=== PATIENT | male | born 1955 | race Caucasian/White ===

== ENCOUNTER → 2019-05-10 10:35 | Outpatient (BNVA) | payer BC, SELFPAY | PROVIDERS: Visit Provider Family Medicine | DX: Z23 Encounter for immunization (principal); J30.2 Other seasonal allergic rhinitis; E78.2 Mixed hyperlipidemia; Z12.5 Encounter for screening for malignant neoplasm of prostate | CPT/HCPCS: 80053; 80061; 85025; G0103 ==

== ENCOUNTER → 2019-12-29 16:40 | Outpatient (BNVA) | payer BC, SELFPAY | PROVIDERS: Visit Provider Family Medicine | DX: E78.2 Mixed hyperlipidemia (principal) | CPT/HCPCS: 80053; 80061; 85025 ==

== ENCOUNTER → 2021-08-07 10:18 | Outpatient (BNVA) | payer MEDICARE, BC, SELFPAY | PROVIDERS: Visit Provider Family Medicine | DX: E78.5 Hyperlipidemia, unspecified (principal); J30.2 Other seasonal allergic rhinitis; M19.90 Unspecified osteoarthritis, unspecified site; Z12.5 Encounter for screening for malignant neoplasm of prostate | CPT/HCPCS: 80053; 80061; 84443; 85025; G0103 ==

== ENCOUNTER → 2023-04-21 12:05 | Outpatient (BNVA) | payer MEDICARE, BC, SELFPAY | PROVIDERS: Visit Provider Family Medicine | DX: E78.5 Hyperlipidemia, unspecified (principal); Z12.5 Encounter for screening for malignant neoplasm of prostate; M54.9 Dorsalgia, unspecified; E78.2 Mixed hyperlipidemia | CPT/HCPCS: 80053; 80061; 84443; 85025 ==

== ENCOUNTER → 2024-02-10 12:45 | Outpatient (BNVA) | payer MEDICARE, BC, SELFPAY | PROVIDERS: PCP Nurse Practitioner Family; Visit Provider Nurse Practitioner Family | DX: E78.2 Mixed hyperlipidemia (principal) | CPT/HCPCS: 80053; 80061; 84443; 85025 ==

== ENCOUNTER → 2024-08-09 15:24 | Outpatient (BNVA) | payer MEDICARE, BC, SELFPAY | PROVIDERS: PCP Nurse Practitioner Family; Visit Provider Nurse Practitioner Family | DX: E78.2 Mixed hyperlipidemia (principal) | CPT/HCPCS: 80053; 80061; 85025 ==

== ENCOUNTER 2024-11-02 09:31 | Emergency (ER) | payer MEDICARE, BC, SELFPAY ==
--- NOTE | 2024-11-02 09:35 | ECG_ITS ---
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 Measurements Intervals [place] Rate: 58 P: 28 DC: 173 QRS: 55 QRSD: 99 T: 41 QT: 406 QTc: 400 Interpretive Statements SINUS BRADYCARDIA Compared to ECG 08/11/2016 09:06:17 Sinus rhythm no longer present Intraventricular conduction delay no longer present Electronically Signed On 11-02-2024 18:11:00 CDT by Salas Mae M.D. [email or web address]
--- NOTE | 2024-11-02 09:35 | XR_ITS ---
WS: [id number] Exam: XR chest 1V portable [id number] Date/Time of Exam: 11/02/2024 9:49 AM Reason For Exam: chest pain No priors. Lungs are clear and fully inflated. Normal cardiomediastinal silhouette. No pleural effusion. Unremarkable bony structures. XR/XR chest 1V portable [id number] IMPRESSION: 1. Negative chest.
--- NOTE | 2024-11-02 09:36 | ED_ITS ---
HPI - Chest Pain 2 General: Chief Complaint: Chest Pain Stated Complaint: cp, L hand numbness, sent from [facility] Time Seen by Provider: 11/02/24 09:34 History of Present Illness: 69-year-old female presents emergency ro om complaining of epigastric/chest pain for the last 3 days she has not noticed anything that exacerbates or relieves it. She has had some indigestion-like symptoms also had some loose stools that is resolved denies any hematemesis or coffee-ground emesis. No known history of cardiac disease or arrhythmias no previous abdominal surgeries. Associated symptoms: Deny abdominal pain, dyspnea or fever(s) Related Data Previous Rx's ?Medication ?Instructions ?Recorded aspirin 81 mg tablet,delayed 81 mg PO DAILY #90 tabs 0 05/10/19 release (Adult Low Dose Aspirin) cetirizine 10 mg tablet (Zyrtec) 10 mg PO DAILY #90 ta bs 05/10/19 ibuprofen 800 mg tablet 800 mg PO Q8H #30 tabs 04/21 atorvastatin 20 mg tablet See Rx Instructions .Route 0 08/09/24 .COMPLEX #90 tabs pantoprazole 40 mg tablet,delayed 40 mg PO DAILY 4 wee ks #28 tabs 11/02/24 release Allergies Allergy/AdvReac Type Severity Reaction Status Date / Time No Known Allergies Allergy Verified 11/02/24 08:31 Review of Systems 2 Const: Denies: fever(s) or chills Card: Reports: chest pain Resp: Denies: dyspnea GI: Denies: abdominal pain : Denies: dysuria, urinary frequency or urinary urgency Musc: Denies: neck pain or back pain Skin/Breast: Denies: rash PFSH ED 2 PFSH: Family History Other Diabetes Stroke Denies family history of Cancer Social History Smoking and tobacco/nicotine status: never used tobacco/nicotine Second hand smoke exposure: No Alcohol intake: never Substance/Drug Use: never Adopted: No Caregiver/support person: No Lives independently: Yes Household members: none Housing: House Marital status: Single Number of children: 0 service: No Current occupational status: retired Do you think of yourself as: Straight/Heterosexual Current gender identity: Male Physical Exam 2 Const: GENERAL APPEARANCE: cooperative ORIENTATION/CONSCIOUSNESS: Yes awake, Yes oriented to person, Yes oriented to place and Yes oriented to time HENMT: COMMON NORMALS: normocephalic, atraumatic and hearing grossly normal bilaterally HEAD & SCALP: normocephalic and atraumatic Resp: COMMON NORMALS: normal respiratory effort, No retractions, No use of accessory muscles and clear to auscultation bilaterally AUSCULTATION: clear to auscultation bilaterally Cardio: COMMON NORMALS: regular rate, regular rhythm and No murmurs present (Cardio) RATE: regular rate RHYTHM: regular rhythm GI: COMMON NORMALS: Soft to palpation and No hepatosplenomegaly present A USCULTATION: Yes normoactive bowel sounds PALPATION: Yes Soft to palpation, No Tenderness to palpation present (GI), No Guarding due to palpation present (GI) and Yes No hepatosplenomegaly present Extremity: COMMON NORMALS: normal to inspection, capillary refill normal, no clubbing, cyanosis or edema, no calf tenderness and no pedal edema Neuro: SENSORIUM/ORIENTATION: Yes oriented to person, Yes oriented to place and Yes oriented to time Skin: COMMON NORMALS: no rashes or lesions noted GENERAL SKIN EXAM: no rashes or lesions noted Course 2 Vital Signs: Vital signs: Vital Signs Temperature 98.1 F 11/02/24 09:45 Pulse Rate 62 11/02/24 11:12 Respiratory Rate 16 11/02/24 11:12 Blood Pressure 117/84 11/02/24 11:12 Pulse Oximetry 93 11/02/24 11:12 Oxygen Delivery Me thod Room Air 11/02/24 11:12 MDM - Chest Pain Medical Decision Making Delta troponin is negative EKGs show no signs of acute coronary syndrome. Sinus bradycardia without ST changes. Will discharge patient home started on Protonix. Set her up for an outpatient Lexiscan sestamibi stress test and follow-up with her primary care doctor if symptoms persist she may need further evaluation including possible evaluation of gallbladder if her cardiac stress test is negative Medical Records I reviewed the patient's medical records. Lab Data I reviewed the patient's lab results. 11/02/24 09:53 11/02/24 09:53 Radiology Impressions Chest X-Ray 11/02/24 09:35 IMPRESSION: 1. Negative chest. Laboratory Results WBC 5.73 10^3/uL (3.29-11.43) 11/02/24 09:53 RBC 5.03 10^6/uL (3.85-5.65) 11/02/24 09:53 Hgb 15.60 g/dL (11.27-16.99) 11/02/24 09:53 Hct 46.2 % (37-53) 11/02/24 09:53 MCV 91.8 fl (82-101) 11/02/24 09:53 MCH 31.0 pg (27-33) 11/02/24 09:53 MCHC 33.8 g/dL (30-55) 11/02/24 09:53 RDW 12.2 % (12.1-15.1) 11/02/24 09:53 Plt Count 223 10^3/cmm (157-399) 11/02/24 09:53 MPV 9.8 fL (7.4-10.4) 11/02/24 09:53 Neut % (Auto) 47.4 % 11/02/24 09:53 Lymph % (Auto) 33.7 % 11/02/24 09:53 Hardin % (Auto) 14.0 % 11/02/24 09:53 Eos % (Auto) 3.5 % 11/02/24 09:53 Baso % (Auto) 0.7 % 11/02/24 09:53 Neut # (Auto) 2.72 10^3/uL (1.8-7.7) 11/02/24 09:53 Lymph # (Auto) 1.9 10^3/uL (0.8-4.8) 11/02/24 09:53 Hardin # (Auto) 0.8 10^3/uL (0.2-0.9) 11/02/24 09:53 Eos # (Auto) 0.2 10^3/uL (0.0-0.8) 11/02/24 09:53 Baso # (Auto) 0.0 10^3/uL (0.0-0.1) 11/02/24 09:53 Nucleated RBC % (auto) 0 % 11/02/24 09:53 Nucleated RBCs # 0.0 /100WBC 11/02/24 09:53 Sodium 138 mmol/L (136-145) 11/02/24 09:53 Potassium 4.5 mmol/L (3.5-5.1) 11/02/24 09:53 Chloride 104 mmol/L (98-107) 11/02/24 09:53 Carbon Dioxide 25 mmol/L (22-29) 11/02/24 09:53 Anion Gap 13.5 (5-19) 11/02/24 09:53 BUN 16 mg/dL (8-23) 11/02/24 09:53 Creatinine 0.8 mg/dL (0.7-1.2) 11/02/24 09:53 GFR Calculation 95.8 mL/min (90-130) 11/02/24 09:53 Glucose 114 mg/dL (65-115) 11/02/24 09:53 Calculated Osmolality 288 mOsm/kg (285-295) 11/02/24 09:53 Calcium 9.1 mg/dL (8.5-10.5) 11/02/24 09:53 Total Bilirubin 0.4 mg/dL (0.15-1.2) 11/02/24 09:53 AST 28 U/L (0-40) 11/02/24 09:53 ALT 38 U/L (0-41) 11/02/24 09:53 Alkaline Phosphatase 67 U/L (40-130) 11/02/24 09:53 Troponin T Baseline 12 ng/L (0-15) 11/02/24 09:53 Troponin T 120 Minute 11.72 ng/L (0-15) 11/02/24 11:47 Delta Troponin T -0.28 ABS# (0-10) L 11/02/24 11:47 Total Protein 7.1 g/dL (6.6-8.7) 11/02/24 09:53 Albumin 4.3 g/dL (3.5-5.2) 11/02/24 09:53 Globulin 2.8 g/dL (1.3-4.6) 11/02/24 09:53 All radiology interpretation(s) finalized by discharge EKG Data EKG 1: Interpretation: EKG 11/02/2024 9:40 AM sinus bradycardia. Rate of 58 PA interval 173 QTc 400. No acute ST elevations noted. T wave inversion in V1 and 2 compared to EKG 08/11/2016 now has sinus bradycardia but otherwise no significant changes EKG 2: Interpretation: EKG 09/02/2024 1157 sinus bradycardia rate of 58 PA interval 178 QTc 438 compared to EKG done earlier same day no changes. Discharge Plan Discharge Patient Disposition: Home Clinical Impression: Atypical chest pain Condition: Stable Prescriptions: New pantoprazole 40 mg tablet,delayed release (DR/EC) 40 mg PO DAILY 28 Days Qty: 28 0RF No Action aspirin [Adult Low Dose Aspirin] 81 mg tablet,delayed release (DR/EC) 81 mg PO DAILY Qty: 90 0RF cetirizine [Zyrtec] 10 mg tablet 10 mg PO DAILY Qty: 90 0RF ibuprofen 800 mg tablet 800 mg PO Q8H Qty: 30 0RF atorvastatin 20 mg tablet See Rx Instructions .ROUTE .COMPLEX Qty: 90 1RF Dose Instruction: TAKE ONE TABLET BY MOUTH DAILY Rx Instructions: TAKE ONE TABLET BY MOUTH DAILY Discharge Orders: Discharge ED (Routine); Ordered 11/02/24 Ordered By: Callum Iglesias Referrals: Brenda Mace FNP-C [Primary Care Provider, Family Practice] Discharge Diet: As Directed Discharge Activity: Increase activity as tolerated Patient Instructions: Diet for Stomach Ulcers and Gastritis (ED), Opioid Safety, Pain Management, Patient Portal & Mohini Instructions Activity Restrictions/Additional Instructions: Thank you for choosing [facility] for your healthcare needs today. It is very important that you follow up as instructed or that you return to the Emergency Department should you have concerns or if your condition changes or worsens in any way. You were seen in the emergency room with complaints of chest pain and epigastric discomfort. Your cardiac enzymes were negative your EKGs were normal. Will discharge you home on Protonix 40 mg daily. Will set you up for an outpatient Lexiscan sestamibi stress test and follow-up with your primary care doctor. Print Language: Botswanan Coding Level of Care Code ED Carpet Layer for Kamini Brandt
[2024-11-02 09:45] VITALS: BP 122/82; PULSE 68; RESP 18; TEMP 36.7; O2SAT 96; BMI 34.7
[2024-11-02 10:04] LABS: Hematocrit 46.2 % (37-53); Hemoglobin 15.60 g/dL (11.27-16.99); Mean Corpuscular HGB Conc 33.8 g/dL (30-55); Mean Corpuscular Hemoglobin 31.0 pg (27-33); Mean Corpuscular Volume 91.8 fl (82-101); Nucleated Red Blood Cells % 0 %; Platelet Count 223 10^3/cmm (157-399); Red Blood Count 5.03 10^6/uL (3.85-5.65); White Blood Count 5.73 10^3/uL (3.29-11.43)
[2024-11-02 10:23] LABS: Troponin(5th) Baseline 12 ng/L (0-15)
[2024-11-02 10:31] LABS: Alanine Aminotransferase 38 U/L (0-41); Albumin Level 4.3 g/dL (3.5-5.2); Alkaline Phosphatase 67 U/L (40-130); Anion Gap 13.5 (5-19); Aspartate Amino Transferase 28 U/L (0-40); Blood Urea Nitrogen 16 mg/dL (8-23); Calcium 9.1 mg/dL (8.5-10.5); Carbon Dioxide 25 mmol/L (22-29); Chloride 104 mmol/L (98-107); Creatinine Clr Calc Pharmacy 114.6453; Globulin 2.8 g/dL (1.3-4.6); Glucose 114 mg/dL (65-115); Osmolality Calculated 288 mOsm/kg (285-295); Potassium 4.5 mmol/L (3.5-5.1); Sodium 138 mmol/L (136-145); Total Protein 7.1 g/dL (6.6-8.7)
[2024-11-02 11:12] VITALS: BP 117/84; PULSE 62; RESP 16; O2SAT 93
--- NOTE | 2024-11-02 11:57 | ECG_ITS ---
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 Measurements Intervals [place] Rate: 58 P: 27 [place]: 178 QRS: 6 QRSD: 103 T: 14 QT: 436 QTc: 430 Interpretive Statements SINUS BRADYCARDIA Compared to ECG 11/02/2024 09:40:42 No significant changes Electronically Signed On 11-02-2024 18:17:01 CDT by Salas Mae M.D. [id number]
[2024-11-02 12:13] LABS: Troponin 5 2HR 11.72 ng/L (0-15)
[2024-11-02 12:16] LABS: Troponin 5 2HR Delta -0.28 ABS# (0-10)
[2024-11-02 12:41] VITALS: BP 113/77; PULSE 63; O2SAT 98
== END 2024-11-02 12:47 | disposition home or self-care (01) ==
PROVIDERS: Emergency Provider Family Medicine; PCP Nurse Practitioner Family
DX: R07.89 Other chest pain (principal); Z79.82 Long term (current) use of aspirin
CPT/HCPCS: 36415; 71045; 80053; 84484; 85025; 93005; 99285

== ENCOUNTER 2024-11-11 06:27 | Outpatient (CLI) | payer MEDICARE, BC, SELFPAY ==
[2024-11-11 06:42] VITALS: BMI 34.7
--- NOTE | 2024-11-11 06:53 | NMCV_ITS ---
NM [place] perf SPECT r/s* [id number] Cam Titus Age: 69 Gender: M : 1955 Exam Date: 11/11/2024 07:31 Ordering Phys: Callum Iglesias DO Technologist: COLEMAN Crain Exam Location: [facility] Indications: cp STRESS TEST Please see separate stress test report in [facility] for full findings IMAGE PROTOCOL Rest/Stress 1 Lexiscan Day Radiopharmaceutical Dose (mCi) Administration Site Administered by Rest: Tc-99m 10.5 IV COLEMAN Crain Sestamibi Stress:Tc-99m 33 IV COLEMAN Bell Sestamibi Rest: 11-Nov-2024 60 Discovery 630 Stress: 11-Nov-2024 30 Discovery 630 0.4mg Lexiscan. Images obtained in supine and prone position. SPECT RESULTS Technical Quality: Good Raw Data Analysis: Normal Image Corrections: No attenuation or motion correction applied Summed Stress Score: 3 Summed Rest Score: 0 Summed Difference Score: 3 PERFUSION FINDINGS Patchy areas of slightly decrease tracer uptake was noted in the mid anterior, mid inferolateral and apical lateral segments. Some reversibility was noted in these areas, FUNCTIONAL RESULTS (calculated via Gated SPECT) Stress Image LV EF (%): 62 Stress EDV (mL):115 TID: 1.39 Stress ESV (mL):44 FUNCTIONAL FINDINGS: Segmental wall motion analysis revealing no gross wall motion abnormalities. The transient ischemic dilatation ratio was 1.39. IMPRESSIONS 1. Myocardial perfusion imaging revealing small areas of reversible defects in the anterior and inferolateral regions suggesting ischemia in distribution of the left and ascending artery/circumflex artery. Some inconsistency was noted with the prone imaging. Elevated transient ischemic dilatation ratio 1.39 also may suggest endocardial ischemia. Clinical correlation is recommended 2. Normal LV ejection fraction 62%. 3. LV wall motion analysis revealing no gross wall motion abnormalities. 4. LV volume, upper limit of normal. No similar previous studies are available for comparison Dr Salas Mae MD [facility] (Electronically Signed) Final Date: 11 November 2024 11:10 S
--- NOTE | 2024-11-11 06:53 | ECG_ITS ---
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 Interpretive Statements Lung unchanged pre/post procedure; Intraprocedure shortess of breath; Symptoms resoled by discharge PROCEDURE: At the baseline, the EKG revealed sinus bradycardia with normal ST Ts.. The baseline heart was 55 bpm with a blood pressue of 119/88 mm of Hg Lexiscan was infused over a period of 20 seconds. A total of 0.4 milligrams of Lexiscan was infused. The stress phase was continued for a total of 5 minutes. Heart rate at the end of the stress phase was 70 bpm with a blood pressure 108/76 mm of Hg. The EKG at the peak infusion revealed no significant changes. Sestamibi was injected 20 seconds after the Lexiscan infusion. Heart rate at the end of the recovery phase was 68 bpm with a blood pressure of 116/70 mm of Hg. CONCLUSION: 1. No significant EKG changes with the LexiScan infusion 2. No LexiScan induced chest pain or cardiac arrhythmia 3. Normal blood pressure and heart rate response 4. Sestamibi/sestamibi perfusion scan pending; see separate report.. Electronically Signed On 11-13-2024 12:57:01 CDT by Salas Mae M.D. [email or web address] [id number]
[2024-11-11 08:00] VITALS: BP 116/72; PULSE 60
== END 2024-11-11 06:28 | disposition home or self-care (01) ==
LOC: CDL 06:30
PROVIDERS: PCP Nurse Practitioner Family; Visit Provider Family Medicine
DX: R07.89 Other chest pain (principal); R94.39 Abnormal result of other cardiovascular function study; R00.1 Bradycardia, unspecified
CPT/HCPCS: 36415; 78452; 93017; 96374; A9500; J2785